=== PATIENT | male | born 1990 | race Hispanic/Latino ===

== ENCOUNTER 2017-11-17 12:37 | Emergency (ER) | payer OTHER ==
[2017-11-17 12:49] VITALS: BP 152/91
[2017-11-17 13:40] LABS: Basophils % (Auto) 0.6 % (0.0-1.8); Eosinophils # (Auto) 0.2 K/mm3 (0.0-0.4); Eosinophils % (Auto) 1.7 % (0.0-4.3); Hematocrit 41.1 % (35.5-45.6); Hemoglobin 13.9 gm/dl (11.8-15.2); Lymphocytes % (Auto) 17.6 % (13.4-35.0); Mean Corpuscular HGB Conc 34 % (32-34); Mean Corpuscular Hemoglobin 30 pg (28-32); Mean Corpuscular Volume 88 fl (84-94); Monocytes # (Auto) 0.9 K/mm3 (0.0-0.8); Monocytes % (Auto) 7.7 % (0.0-7.3); Platelet Count 321 K/mm3 (140-440); Red Blood Count 4.69 M/mm3 (3.65-5.03)
[2017-11-17 13:41] LABS: Basophils # (Auto) 0.1 K/mm3 (0.0-0.1)
[2017-11-17 13:43] LABS: BUN/Creatinine Ratio 22; Blood Urea Nitrogen 26 mg/dL (9-20); Calcium 9.6 mg/dL (8.4-10.2); Hemolysis Index 33
== END 2017-11-17 13:45 | disposition left against medical advice (07) ==
LOC: ED 12:37
DX: F22 Delusional disorders (principal); Z53.21 Procedure and treatment not carried out due to patient leaving prior to being seen by health care provider; Z79.899 Other long term (current) drug therapy
CPT/HCPCS: 36415; 80048; 85025; G0480; 80320

== ENCOUNTER 2019-12-25 16:31 | Emergency (ER) | payer SELFPAY ==
[2019-12-25 17:34] VITALS: BP 141/72
== END 2019-12-25 20:41 | disposition left against medical advice (07) ==
LOC: ED 16:31
DX: M79.671 Pain in right foot (principal); Z53.21 Procedure and treatment not carried out due to patient leaving prior to being seen by health care provider

== ENCOUNTER 2019-12-25 23:52 | Emergency (ER) | payer SELFPAY ==
[2019-12-26 00:22] VITALS: BP 118/79
--- NOTE | 2019-12-26 00:58 | Emergency Department Report ---
ED Psych HPI - General Chief Complaint: Psych Stated Complaint: BLAINE MARIA Time Seen by Provider: 12/26/19 00:57 Source: patient Mode of arrival: Ambulatory Limitations: Altered Mental Status - History of Present Illness Initial Comments: Patient is a 29-year-old male that presents emergency room with complaints of needing to be seen because he has bugs crawling in and out of his body. Patient states that he can feel them going in and out. Patient states he has lesions all over his body. Patient states he has parasites going in his arms. Patient denies hallucinations. Patient denies audiovisual hallucinations. Patient denies psychiatric history. Patient denies drug use. Patient denies suicidal homicidal ideation. Patient denies recent travel. Patient denies recent international travel. Patient denies exposure to the novel coronavirus. Patient denies sick contacts. Patient denies fever and chills. Patient denies cough. Patient denies diarrhea. Patient denies coming in contact with anybody with symptoms of the novel coronavirus. MD Complaint: altered mental status -: Sudden Associated Psychiatric Symptoms: none History of same: No Quality: constant Improves With: none Worsens With: none Context: significant life stressor Associated Symptoms: denies: confusion, headache, shortness of breath, nausea, vomiting, syncope, insomnia - Related Data Previous Rx's Medication Instructions Recorded Last Taken Type Acetaminophen/Codeine [Tylenol #3] 1 tab PO Q6H PRN #25 tab 10/06/14 Unknown Rx Amoxicillin/K Clav Tab [Augmentin 1 tab PO BID #20 tablet 10/06/14 Unknown Rx 875MG] Ibuprofen [Motrin] 600 mg PO Q8H PRN #50 tablet 10/06/14 Unknown Rx Allergies Allergy/AdvReac Type Severity Reaction Status Date / Time No Known Allergies Allergy Verified 12/26/19 00:14 ED Review of Systems ROS: Stated complaint: BLAINE EVVADIM Other details as noted in HPI Constitutional: denies: chills, fever Eyes: denies: eye pain, eye discharge, vision change ENT: denies: ear pain, throat pain Respiratory: denies: cough, shortness of breath, wheezing Cardiovascular: denies: chest pain, palpitations Endocrine: no symptoms reported Gastrointestinal: denies: abdominal pain, nausea, diarrhea Genitourinary: denies: urgency, dysuria Musculoskeletal: denies: back pain, joint swelling, arthralgia Skin: denies: rash, lesions Neurological: denies: headache, weakness, paresthesias Psychiatric: denies: anxiety, depression, auditory hallucinations, visual hallucinations, homicidal thoughts, suicidal thoughts Hematological/Lymphatic: denies: easy bleeding, easy bruising ED Past Medical Hx - Past Medical History Previous Medical History?: No - Surgical History Past Surgical History?: No - Family History Family history: no significant - Social History Smoking Status: Never Smoker Substance Use Type: Marijuana, Methamphetamines - Medications Home Medications: Home Medications Medication Instructions Recorded Confirmed Last Taken Type Acetaminophen/Codeine [Tylenol #3] 1 tab PO Q6H PRN #25 tab 10/06/14 Unknown Rx Amoxicillin/K Clav Tab [Augmentin 1 tab PO BID #20 tablet 10/06/14 Unknown Rx 875MG] Ibuprofen [Motrin] 600 mg PO Q8H PRN #50 tablet 10/06/14 Unknown Rx ED Physical Exam - General Limitations: No Limitations General appearance: alert, in no apparent distress - Head Head exam: Present: atraumatic, normocephalic - Eye Eye exam: Present: normal appearance - ENT ENT exam: Present: mucous membranes moist - Neck Neck exam: Present: normal inspection - Respiratory Respiratory exam: Present: normal lung sounds bilaterally. Absent: respiratory distress - Cardiovascular Cardiovascular Exam: Present: regular rate, normal rhythm. Absent: systolic murmur, diastolic murmur, rubs, gallop - GI/Abdominal GI/Abdominal exam: Present: soft, normal bowel sounds - Rectal Rectal exam: Present: deferred - Extremities Exam Extremities exam: Present: normal inspection - Back Exam Back exam: Present: normal inspection - Neurological Exam Neurological exam: Present: alert, oriented X3 - Psychiatric Psychiatric exam: Present: flat affect - Expanded Psychiatric Exam Expanded Focused psych exam: Present: pressured speech, internal stimuli, delusional, paranoid, restlessness - Skin Skin exam: Present: warm, dry, intact, normal color. Absent: rash ED Course Vital Signs 12/26/19 00:15 Temperature 97.6 F Pulse Rate 85 Respiratory 16 Rate Blood Pressure 118/79 O2 Sat by Pulse 100 Oximetry - Reevaluation(s) Reevaluation #1: Patient is medically cleared. Patient will remain in the ER as an ER hold until the final disposition comes from our psychiatry team. 12/26/19 01:46 ED Medical Decision Making - Lab Data Result diagrams: 12/26/19 00:35 12/26/19 00:35 - Medical Decision Making Patient is a 29-year-old male that presents emergency room for a mental health evaluation. Patient complained of feeling insects crawling in and out of his body, parasites crawling out of bodies and being infested with leeches. Patient is hyperverbal and delusional. Patient clinical findings consistent with acute psychosis. Patient had labs done. Patient's labs were essentially unremarkable. Patient is medically cleared. Patient's final disposition will come from our mental health and psychiatry team. Patient will remain on a ER hold until the patient is cleared by our psychiatry team. - Differential Diagnosis Acute psychosis, delusions, tactile hallucinations. Critical care attestation.: If time is entered above; I have spent that time in minutes in the direct care of this critically ill patient, excluding procedure time. ED Disposition Clinical Impression: Delusion, Acute psychosis Is pt being admited?: No Does the pt Need Aspirin: No Condition: Stable Time of Disposition: 01:46
[2019-12-26 01:02] LABS: Amorphous Crystals,Urine Few; Bacteria,Urine 1+ /HPF (Negative); Bilirubin,Urine NEG (Negative); Blood,Urine NEG (Negative); Color,Urine Yellow (Yellow); Mucus,Urine 2+ /HPF
[2019-12-26 01:07] LABS: Basophils # (Auto) 0.1 K/mm3 (0.0-0.1); Basophils % (Auto) 0.9 % (0.0-1.8); Eosinophils # (Auto) 0.5 K/mm3 (0.0-0.4); Eosinophils % (Auto) 6.7 % (0.0-4.3); Hematocrit 35.1 % (35.5-45.6); Hemoglobin 11.9 gm/dl (11.8-15.2); Lymphocytes # (Auto) 1.2 K/mm3 (1.2-5.4); Lymphocytes % (Auto) 16.7 % (13.4-35.0); Mean Corpuscular HGB Conc 34 % (32-34); Mean Corpuscular Volume 91 fl (84-94); Monocytes # (Auto) 0.5 K/mm3 (0.0-0.8); Monocytes % (Auto) 7.7 % (0.0-7.3); Platelet Count 215 K/mm3 (140-440); Red Blood Count 3.87 M/mm3 (3.65-5.03)
[2019-12-26 01:09] LABS: Amphetamine Screen,Urine PRESUMPTIVE POSITIVE; Benzodiazepines Screen,Urine PRESUMPTIVE NEGATIVE; Cannabinoid Screen,Urine PRESUMPTIVE POSITIVE; Cocaine Screen,Urine PRESUMPTIVE NEGATIVE; Methadone Screen,Urine PRESUMPTIVE NEGATIVE; Opiate Screen,Urine PRESUMPTIVE NEGATIVE
[2019-12-26 01:27] LABS: BUN/Creatinine Ratio 18; Blood Urea Nitrogen 18 mg/dL (9-20); Hemolysis Index 9
== END 2019-12-26 14:02 | disposition home or self-care (01) ==
LOC: ED 23:52
DX: F23 Brief psychotic disorder (principal); F22 Delusional disorders
CPT/HCPCS: 36415; 80048; 80307; 80320; 81001; 85025; G0480